=== PATIENT | female | born 1995 | race Caucasian/White ===

== ENCOUNTER 2016-10-02 14:46 | Emergency (ER) | payer BC, OTHER ==
[~2016-10-02] VITALS: Ht 165.1 cm; Wt 78.0 kg
[2016-10-02 15:14] VITALS: BP 131/75
== END 2016-10-02 17:51 | disposition home or self-care (01) ==
LOC: ER 14:46
DX: O26.891 Other specified pregnancy related conditions, first trimester (principal); R10.9 Unspecified abdominal pain; Z3A.00 Weeks of gestation of pregnancy not specified
CPT/HCPCS: 36415; 81025; 84702

== ENCOUNTER 2019-11-06 18:42 | Emergency (ER) | payer BC, MEDICAID ==
[~2019-11-06] VITALS: Ht 165.1 cm; Wt 75.3 kg
[2019-11-06 20:33] VITALS: BP 113/62
== END 2019-11-06 20:38 | disposition home or self-care (01) ==
LOC: ER 18:42
DX: S01.01XA Laceration without foreign body of scalp, initial encounter (principal); Z91.041 Radiographic dye allergy status; Y04.0XXA Assault by unarmed brawl or fight, initial encounter; Y93.89 Activity, other specified; Y92.89 Other specified places as the place of occurrence of the external cause; Y99.8 Other external cause status
CPT/HCPCS: 12002

== ENCOUNTER 2019-11-20 18:16 | Emergency (ER) | payer MEDICAID ==
[~2019-11-20] VITALS: Ht 165.1 cm; Wt 75.3 kg
[2019-11-20 19:03] VITALS: BP 99/64
== END 2019-11-20 19:10 | disposition home or self-care (01) ==
LOC: ER 18:16
DX: S01.01XD Laceration without foreign body of scalp, subsequent encounter (principal); X58.XXXD Exposure to other specified factors, subsequent encounter

== ENCOUNTER 2021-11-16 19:58 | Emergency (ER) | payer MEDICAID ==
[~2021-11-16] VITALS: Ht 165.1 cm; Wt 63.5 kg
[2021-11-16 21:32] LABS: Basophils # (auto) 0 10 ^3/uL (0-0.2); Basophils % (auto) 0.7 % (0.0-2.0); Eosinophils # (auto) 0.1 10 ^3/uL (0-0.8); Lymphocytes # (auto) 1.4 10 ^3/uL (0.4-5.4); Mean Corpuscular Hemoglobin 36.8 pg (28.0-32.0); Monocytes # (auto) 0.5 10 ^3/uL (0-1.3); White Blood Cell 6.5 10^3/uL (4.4-10.8)
[2021-11-16 21:35] LABS: Eosinophils % (auto) 1.7 % (0.0-7.0); Hematocrit 35.5 % (36.0-46.0); Hemoglobin 12.2 g/dL (12.2-16.2); Lymphocytes % (auto) 20.9 % (10.0-50.0); Mean Corpuscular Hgb Conc. 34.4 g/dL (32.0-36.0); Mean Corpuscular Volume 106.9 fL (80.0-100.0); Neutrophils # (auto) 4.5 10 ^3/uL (1.6-8.6); Neutrophils % (auto) 68.7 % (37.0-80.0); Red Blood Cells 3.32 10^6/uL (4.0-5.20); Red Cell Distribution Width 16.6 % (11.8-14.3)
[2021-11-16 21:48] LABS: Urine Bacteria NONE SEEN /hpf (None Seen); Urine Blood Negative /uL (Negative); Urine Mucus FEW (None Seen); Urine Specific Gravity 1.016 (1.001-1.035); Urine WBC 3 /hpf (0 - 5)
[2021-11-16 21:50] LABS: Albumin 4.1 g/dL (3.4-5.0); Calcium 8.7 mg/dL (8.5-10.1); Potassium 3.7 mmol/L (3.5-5.1)
[2021-11-16 21:53] LABS: BUN/Creatinine Ratio 15.9; Bilirubin, Total 0.8 mg/dL (0.2-1.0); Total Protein 8.2 g/dL (6.4-8.2)
[2021-11-16 23:35] VITALS: BP 118/71
== END 2021-11-16 23:25 | disposition home or self-care (01) ==
LOC: ER 19:58
DX: O26.891 Other specified pregnancy related conditions, first trimester (principal); R10.32 Left lower quadrant pain; Z88.8 Allergy status to other drugs, medicaments and biological substances; Z3A.01 Less than 8 weeks gestation of pregnancy
CPT/HCPCS: 36415; 76801; 80053; 81001; 84702; 85025

== ENCOUNTER 2025-02-04 08:16 | Emergency (ER) | payer MEDICAID ==
[~2025-02-04] VITALS: Ht 165.1 cm; Wt 69.6 kg
--- NOTE | 2025-02-04 08:53 | ED.PDOC ---
History of Present Illness HPI Comments 30-year-old female presents to the ER with prior medical history of 2 miscarriages, in the chief complaint of vaginal bleeding for five days. Patient reports on recently being [facility] and was having a possible miscarriage. Patient garcía s not seen her OBGYN in wants a D&C. Patient's LMP was December 01. Denies chills, fever, N/V/D, SOB, CP. No other associated symptoms, modifiers, recent injuries or sick contacts present at this time. 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 Surgical History: Denies all surgeries DUNGEON MASTER History: No Pertinent DUNGEON MASTER History Family History Family History: Reviewed,noncontributory to illness, Unknown Social History Smoker: Non-Smoker Alcohol: Denies ETOH Use Drugs: Denies Drug Use Lives In: Home Constitutional: denies: chills, diaphoresis, fatigue, fever, malaise, sweats, weakness, others EENTM: denies: blurred vision, double vision, ear bleeding, ear discharge, ear drainage, ear pain, ear ringing, eye pain, eye redness, hearing loss, mouth pain, mouth swelling, nasal discharge, nose bleeding, nose congestion, nose pain, photophobia, tearing, throat pain, throat swelling, voice changes, others Respiratory: denies: cough, hemoptysis, orthopnea, SOB at rest, shortness of breath, SOB with excertion, stridor, wheezing, others Cardiovascular: denies: chest pain, dizzy spells, diaphoresis, Dyspnea on exertion, edema, irregular heart beat, left arm pain, lightheadedness, palpitations, PND, syncope, others Gastrointestinal: denies: abdomen distended, abdominal pain, blood streaked bowels, constipated, diarrhea, dysphagia, difficulty swallowing, hematemesis, melena, nausea, poor appetite, poor fluid intake, rectal bleeding, rectal pain, vomiting, others Genitourinary: reports: abnormal vagina bleeding, ; denies: burning, dyspareunia, dysuria, flank pain, frequency, hematuria, incontinence, pain, vagina discharge, urgency, others Neurological: denies: dizziness, fainting, headache, left sided numbness, left sided weakness, numbness, paresthesia, pre-existing deficit, right sided numbness, right sided weakness, seizure, speech problems, tingling, tremors, weakness, others Musculoskeletal: denies: back pain, gout, joint pain, joint swelling, muscle pain, muscle stiffness, neck pain, others Integumetry: denies: bruises, change in color, change in hair/nails, dryness, laceration, lesions, lumps, rash, wounds, others Allergic/Immunocompromised: denies: Difficulty Healing, Frequent Infections, Hives, Itching, others Hematologic/Lymphatic: denies: anemia, blood clots, easy bleeding, easy bruising, swollen glands, others Endocrine: denies: excessive hunger, excessive sweating, excessive thirst, excessive urination, flushing, intolerance to cold, intolerance to heat, unexplained weight gain, unexplained weight loss, others Psychiatric: denies: anxiety, bipolar disorder, depression, hopeless, panic disorder, schizophrenia, sleepless, suicidal, others All Other Systems: Reviewed and Negative Physical Exam General Appearance: Moderate Distress, Normal HEENT: Normal ENT Inspection, Pharynx Normal, TMs Normal Neck: Full Range of Motion, Non-Tender, Normal, Normal Inspection Respiratory: Chest Non-Tender, Lungs Clear, No Accessory Muscle Use, No Respiratory Distress, Normal Breath Sounds Cardiovascular: No Edema, No JVD, No Murmur, No Gallop, Normal Peripheral Pulses, Regular Rate/Rhythm Breast Exam: Deferred Gastrointestinal: No Organomegaly, Non Tender, No Pulsatile Mass, Normal Bowel Sounds, Soft Genitalia: Deferred Pelvic: Deferred Rectal: Deferred Extremities: No calf tenderness, Normal capillary refill, Normal inspection, Normal range of motion, Non-tender, No pedal edema Musculoskeletal : Apperance: Normal Neurologic: Alert, green pipefitter II-XII nml as Tested, No Motor Deficits, Normal Affect, Normal Mood, No Sensory Deficits Cerebellar Function: Normal Reflexes: Normal Skin: Dry, Normal Color, Warm Peripheral Pulses: 3+ Radial (R), 3+ Radial (L) Lymphatic: No Adenopathy Was a procedure done? Was a procedure done?: No Differential Dx Considerations may include: Urinary tract infection X-Ray, Labs, Meds, VS Vital Signs Date Time Temp Pulse Resp B/P (MAP) Pulse Ox O2 Delivery O2 Flow Rate FiO2 02/04/25 14:03 97.0 64 20 108/66 (80) 99 97.0 02/04/25 10:29 72 16 97 Room Air 02/04/25 10:29 97.5 72 17 105/60 (75) 98 97.5 02/04/25 08:17 97.0 76 16 104/55 97 97.0 Lab Test 02/04/25 10:28 02/04/25 09:11 Range/Units Urine Color Light-yellow Yellow Urine Clarity Clear Clear Urine pH 6.5 5.0-9.0 Urine Specific [place] 1.006 1.001-1.035 Urine Protein Negative Negative Urine Ketones Negative Negative Urine Blood 2+ H Negative /uL Urine Nitrite Negative Negative Urine Bilirubin Negative Negative Urine Urobilinogen Normal Negative mg/dL Urine Leukocyte Esterase 1+ Negative /uL Urine RBC <1 0 - 4 /hpf Urine Microscopic WBC 3 0-5 /HPF Urine Squamous Epithelial Cells Few <5 /hpf Urine Bacteria Few H None Seen /hpf Urine Glucose Normal Normal mg/dL Beta HCG, Quantitative 9632.8 H 1.5-4.2 mIU/mL Patient alert. Came in because of vaginal spotting. Possible miscarriage. Vitals stable. Answering questions. Ultrasound reviewed does show possible early. Was told to follow up blood work ultrasound. Was told to drink plenty of fluids. Was told to continue taking her vitamins. Urinalysis shows UTI. Was given prescription of Keflex antibiotic. Explained to the patient. Was told to follow up with her OBGYN. Was told to follow up with her primary care physician. Was told to come back if there is any problem. Time of 1ST Reevaluation: 09:20 Reevaluation 1ST: Unchanged Patient Education/Counseling: Diagnosis, Treatment, Prognosis Family Education/Counseling: No Family Present SEPSIS Sepsis Screen Date sepsis recognized/suspect: Feb 04, 2025 Time Sepsis recognized/suspect: 08 Recent Procedure: No On Antibiotic Therapy: No Respiratory Rate >20: No Heart Rate >90: No Temp<36 C (96.8 F) or >38.3 C: No SBP <90 or MAP <65 mmHG: No New Acute Mental Status Change: No Is the patient on CPAP, BIPAP,: No Physician Orders Ob Ultrasound Comp Less 14wks (02/04/25 09:05) Ob Trans Vaginal Us (02/04/25 ) Vital Signs Date Time Temp Pulse Resp B/P (MAP) Pulse Ox O2 Delivery O2 Flow Rate FiO2 02/04/25 14:03 97.0 64 20 108/66 (80) 99 97.0 02/04/25 10:29 72 16 97 Room Air 02/04/25 10:29 97.5 72 17 105/60 (75) 98 97.5 02/04/25 08:17 97.0 76 16 104/55 97 97.0 Departure 1 Departure Time of Disposition: :28 Impression: Primary Impression: Vaginal bleeding during Additional Impression: UTI (urinary tract infection) Qualified Codes: N30.00 - Acute cystitis without hematuria Disposition: 01 HOME / SELF CARE / HOMELESS Condition: Good e-Prescriptions Cephalexin (KEFLEX CAPSULE) 250 Mg Cp 1 CAP PO QID for 7 Days, #28 CAP Prov: GILA MARTINEZ MD 02/04/25 Discharged With: Self Critical Care Note Critical Care Time?: No Stability Stability form required: No Heart Score Heart Score: Heart Score Response (Comments) Value History N/A 0 EKG N/A 0 Age N/A 0 Risk Factors N/A 0 Troponin N/A 0 Total 0 I personally scribed for GILA MARTINEZ MD ([email or web address]) on 02/04/25 at 08:53. Electronically submitted by Dixon Peters ([email or web address]). GILA MARTINEZ MD Feb 04, 2025 08:53
--- NOTE | 2025-02-04 10:56 | DVH ---
OB ULTRASOUND <14 WEEKS: HISTORY: bleeding TECHNIQUE: Multiple real-time grayscale sonographic images of the pelvis with duplex Doppler color f low, spectral and M-mode analysis. FINDINGS: Uterus measures 8.9 x 5.4 x 6.0 cm. No free fluid is noted within the cul-de-sac. Single intrauterine is noted with gestational sac of 1.8 cm and CRL of 1.1 cm corresponding with 6 weeks and 5 days. DANY of 09/25/2024. Enlarged yolk sac as 7 mm.. heart rate is not vi sualized at this time. Right ovary measures 3.5 x 1.6 x 2.6 cm and left ovary measures 2.8 x 1.9 x 1.6 cm. A 1.8 x 0.9 x 1.1 cm isoechoic structure is noted within the right ovary with peripheral vascularity which may reflect a corpus luteal cyst or hemorrhagic cyst. IMPRESSION: 1. Single intrauterine at 6 weeks and 5 days with DANY of 09/25/2024. heart rate is n ot visualized at this time. Enlarged yolk sac at 7 mm. early failure vs early stages of pre gnancy considered at this time. Recommend short-term follow-up ultrasound, poll clerk consultation, and t rending beta hCG. 2. Corpus luteal/hemorrhagic cyst within the right ovary.
[2025-02-04 14:48] LABS: Urine Protein, UAD Negative (Negative)
[2025-02-04] MEDS ORDERED: CEPH250C PO (15:21)
[2025-02-04 15:32] VITALS: BP 124/68; PULSE 78; RESP 16; TEMP 98.2; O2SAT 98
== END 2025-02-04 15:33 | disposition home or self-care (01) ==
LOC: ER 08:16
DX: O20.9 Hemorrhage in early pregnancy, unspecified (principal); O23.41 Unspecified infection of urinary tract in pregnancy, first trimester; O34.31 Maternal care for cervical incompetence, first trimester; N39.0 Urinary tract infection, site not specified; Z3A.01 Less than 8 weeks gestation of pregnancy
CPT/HCPCS: 36415; 76801; 76817; 81001; 84702